=== PATIENT | male | born 1930 | race African-American/Black ===

== ENCOUNTER 2017-01-27 12:55 | Inpatient (IN) | payer MEDICARE ==
[~2017-01-27] VITALS: Ht 172.7 cm; Wt 56.2 kg
[2017-01-27] MEDS ORDERED: ACETAMINOPHEN 325MG TABLET PO STA (13:35)
[2017-01-27] MEDS ORDERED: LEVOFLOXACIN 750MG PREMIX 150 ML IV ONE (13:45)
[2017-01-27] MEDS ORDERED: SODIUM CHLORIDE 0.9% 1000ML BAG (SEPSIS BOLUS) IV ONE (13:45)
[2017-01-27 14:24] LABS: HEMATOCRIT. 30.2 % (42.0-52.0); HEMOGLOBIN. 9.9 g/dL (14.0-18.0); MEAN CORPUSCULAR HEMOGLOBIN 30.7 pg (28.0-32.0); MEAN CORPUSCULAR HGB CONC 32.8 g/dL (31.0-37.0); MEAN CORPUSCULAR VOLUME 93.6 fL (80.0-94.0); MEAN PLATELET VOLUME 8.2 fl (7.4-10.4); PLATELET 227 x1000/uL (130-400); RED BLOOD CELL COUNT 3.23 mill/uL (4.7-6.1); WHITE BLOOD COUNT 14.7 x1000/uL (4.5-11.0)
[2017-01-27 14:27] LABS: DIFFERENTIAL COMMENT 1
[2017-01-27 14:31] LABS: CHLORIDE 103 mEq/L (98-107); INDEX HEMOLYSI 1 (1-3); INDEX ICTERIC 1 (1-4); INDEX LIPEMIC 1 (1-3); INR 1.3
[2017-01-27 14:41] LABS: ALANINE AMINOTRANSFERASE 25 IU/L (13-61); ALBUMIN 2.8 g/dL (3.4-5.0); ANION GAP 17; CALCIUM 8.5 mg/dL (8.5-10.1); CARBON DIOXIDE 24 mEq/L (21-32); TROPONIN I 0.04 ng/mL (0.00-0.04); UREA NITROGEN BLOOD 39 mg/dL (7-21); eGFR 47 mL/min (>60)
[2017-01-27 14:44] LABS: PLATELET ESTIMATE NORMAL
[2017-01-27] MEDS ORDERED: TERA10CA43 PO (15:39)
[2017-01-27] MEDS ORDERED: FLUD0.1T PO (15:39)
[2017-01-27] MEDS ORDERED: ALLO100T PO (15:39)
[2017-01-27] MEDS ORDERED: METO50TA5 PO (15:39)
[2017-01-27] MEDS ORDERED: SODI15OR4 PO (15:39)
[2017-01-27] MEDS ORDERED: CHOL500010 PO (15:39)
[2017-01-27] MEDS ORDERED: AMLO10TA80 PO (15:39)
[2017-01-27] MEDS ORDERED: SIMV10TA6 PO (15:39)
[2017-01-27] MEDS ORDERED: ONDANSETRON HCL 4MG/2ML VIAL IV PRN (17:15)
[2017-01-27] MEDS ORDERED: MAGNESIUM/ALUMINUM HYDROXIDE/SIMETHICONE 30ML UDC PO PRN (17:15)
[2017-01-27] MEDS ORDERED: DOCUSATE SODIUM 100MG CAPSULE PO PRN (17:15)
[2017-01-27] MEDS ORDERED: GUAIFENESIN 200MG/10ML SUGAR FREE UDC PO PRN (17:15)
[2017-01-27] MEDS ORDERED: DIPHENHYDRAMINE 50MG/ML VIAL IV PRN (17:15)
[2017-01-27] MEDS ORDERED: IPRATROPIUM/ALBUTEROL 0.5-3(2.5)MG/3ML NEB INH PRN (17:15)
[2017-01-27] MEDS ORDERED: NITROGLYCERIN 0.4MG TABLET SL SL PRN (17:15)
[2017-01-27] MEDS ORDERED: CLONIDINE 0.1MG TABLET PO PRN (17:15)
[2017-01-27] MEDS ORDERED: LORAZEPAM 2MG/ML CPJ IV PRN (17:15)
[2017-01-27 17:49] LABS: ETHANOL BLOOD < 10 mg/dL; INDEX HEMOLYSI 1 (1-3); INDEX ICTERIC 1 (1-4); INDEX LIPEMIC 1 (1-3); IRON 14 ug/dL (50-175); TOTAL IRON BINDING CAPACITY 154 ug/dL (250-450)
[2017-01-27 17:54] LABS: T4 FREE 1.83 ng/dL (0.76-1.46)
[2017-01-27 18:10] LABS: FOLIC ACID (FOLATE) SERUM 16.1 ng/mL (>5.38)
[2017-01-27] MEDS ORDERED: TRAMADOL 50MG TABLET PO PRN (18:34)
[2017-01-27] MEDS ORDERED: NA PHOS,M-B/NA PHOS,DI-BA ENEMA 118ML PR PRN (18:35)
[2017-01-27] MEDS ORDERED: ZOLPIDEM TARTRATE 5MG TABLET PO PRN (20:00)
[2017-01-27 20:40] VITALS: BP 126/81
[2017-01-27] MEDS ORDERED: CEFTRIAXONE 1 G PREMIX 50 ML IV SCH (22:00)
[2017-01-27 22:09] LABS: CREATINE KINASE MB FRACTION 1.9 ng/mL (0.5-3.6); TROPONIN I 0.04 ng/mL (0.00-0.04)
[2017-01-27] MEDS: METOPROLOL TARTRATE 25MG TABLET PO SCH (22:22)
[2017-01-27] MEDS: TAMSULOSIN HCL 0.4MG SR CAPSULE PO SCH (22:22)
[2017-01-27] MEDS: ENOXAPARIN 30MG/0.3ML SYR SUBCUT SCH (22:22)
[2017-01-27] MEDS: DUTASTERIDE 0.5MG CAPSULE PO SCH (22:22)
[2017-01-28] VITALS: BP 112/66
[2017-01-28] MEDS: ACETAMINOPHEN 325MG TABLET PO PRN (00:17)
[2017-01-28 04:00] VITALS: BP 125/74
[2017-01-28 07:36] LABS: CREATINE KINASE MB FRACTION 3.2 ng/mL (0.5-3.6)
[2017-01-28 07:38] LABS: TROPONIN I 0.04 ng/mL (0.00-0.04)
[2017-01-28 07:45] VITALS: BP 132/78
[2017-01-28] MEDS: ZINC SULFATE 220 MG ( 50 ) CAPSULE PO SCH (08:44)
[2017-01-28] MEDS: CYANOCOBALAMIN 1000MCG/ML VIAL IM SCH (08:44)
[2017-01-28] MEDS: PANTOPRAZOLE SODIUM 40 MG/VIAL IV SCH (08:44)
[2017-01-28] MEDS: METOPROLOL TARTRATE 25MG TABLET PO SCH ×2 (08:45→21:26)
[2017-01-28] MEDS: DUTASTERIDE 0.5MG CAPSULE PO SCH (08:45)
[2017-01-28 11:16] LABS: HEMATOCRIT. 30.5 % (42.0-52.0); HEMOGLOBIN. 9.9 g/dL (14.0-18.0); MEAN CORPUSCULAR HEMOGLOBIN 30.2 pg (28.0-32.0); MEAN CORPUSCULAR HGB CONC 32.4 g/dL (31.0-37.0); MEAN CORPUSCULAR VOLUME 93.1 fL (80.0-94.0); MEAN PLATELET VOLUME 8.4 fl (7.4-10.4); PLATELET 262 x1000/uL (130-400); RED BLOOD CELL COUNT 3.27 mill/uL (4.7-6.1); WHITE BLOOD COUNT 15.8 x1000/uL (4.5-11.0)
[2017-01-28 11:26] LABS: DIFFERENTIAL COMMENT 1
[2017-01-28 11:37] LABS: CHLORIDE 106 mEq/L (98-107); INDEX HEMOLYSI 1 (1-3); INDEX ICTERIC 1 (1-4); INDEX LIPEMIC 1 (1-3)
[2017-01-28 11:45] LABS: ALANINE AMINOTRANSFERASE 22 IU/L (13-61); ALBUMIN 2.5 g/dL (3.4-5.0); ANION GAP 16; CALCIUM 8.4 mg/dL (8.5-10.1); CARBON DIOXIDE 23 mEq/L (21-32); UREA NITROGEN BLOOD 45 mg/dL (7-21); eGFR 54 mL/min (>60)
[2017-01-28 11:49] VITALS: BP 137/79
[2017-01-28 12:35] LABS: PLATELET ESTIMATE NORMAL
[2017-01-28] MEDS: MORPHINE SULFATE 2 MG/ML CPJ (NOT FOR IM USE) IV PRN (12:54)
[2017-01-28 16:00] VITALS: BP 134/80
[2017-01-28 20:00] VITALS: BP 138/78
[2017-01-28] MEDS: CEFTRIAXONE 1 G PREMIX 50 ML IV SCH (21:26)
[2017-01-28] MEDS: TAMSULOSIN HCL 0.4MG SR CAPSULE PO SCH (21:26)
[2017-01-28] MEDS: ENOXAPARIN 30MG/0.3ML SYR SUBCUT SCH (21:27)
[2017-01-29] VITALS: BP 128/72
[2017-01-29 04:00] VITALS: BP 106/67
[2017-01-29 07:01] LABS: *AMPHETAMINES SCREEN URINE NEGATIVE (NEGATIVE); *BARBITURATES SCREEN URINE NEGATIVE (NEGATIVE); *BENZODIAZEPINES SCREEN URINE NEGATIVE (NEGATIVE); *COCAINE SCREEN URINE NEGATIVE (NEGATIVE); CANNABINOID URINE SCREEN NEGATIVE (NEGATIVE); ECSTASY MDMA SCREEN URINE NEGATIVE (NEGATIVE); METHADONE URINE SCREEN NEGATIVE (NEGATIVE); OPIATES URINE SCREEN PRESUMTIVE POSITIVE (NEGATIVE); PHENCYCLIDINE URINE SCREEN NEGATIVE (NEGATIVE)
[2017-01-29 08:00] VITALS: BP 118/69
[2017-01-29] MEDS: METOPROLOL TARTRATE 25MG TABLET PO SCH ×2 (08:40→21:07)
[2017-01-29] MEDS: CYANOCOBALAMIN 1000MCG/ML VIAL IM SCH (08:40)
[2017-01-29] MEDS: PANTOPRAZOLE SODIUM 40 MG/VIAL IV SCH (08:40)
[2017-01-29] MEDS: DUTASTERIDE 0.5MG CAPSULE PO SCH (08:40)
[2017-01-29] MEDS: ZINC SULFATE 220 MG ( 50 ) CAPSULE PO SCH (08:40)
[2017-01-29 12:00] VITALS: BP 105/64
[2017-01-29 16:00] VITALS: BP 114/73
[2017-01-29] MEDS: LEVOFLOXACIN 750MG PREMIX 150 ML IV SCH (17:18)
[2017-01-29 20:00] VITALS: BP 109/65
[2017-01-29] MEDS: CEFTRIAXONE 1 G PREMIX 50 ML IV SCH (21:06)
[2017-01-29] MEDS: ENOXAPARIN 30MG/0.3ML SYR SUBCUT SCH (21:06)
[2017-01-29] MEDS: TAMSULOSIN HCL 0.4MG SR CAPSULE PO SCH (21:07)
[2017-01-30] VITALS: BP 122/74
[2017-01-30] MEDS: ACETAMINOPHEN 325MG TABLET PO PRN (00:34)
[2017-01-30 04:00] VITALS: BP 111/64
[2017-01-30 07:39] VITALS: BP 111/63
[2017-01-30] MEDS: ZINC SULFATE 220 MG ( 50 ) CAPSULE PO SCH (08:10)
[2017-01-30] MEDS: CYANOCOBALAMIN 1000MCG/ML VIAL IM SCH (08:10)
[2017-01-30] MEDS: PANTOPRAZOLE SODIUM 40 MG/VIAL IV SCH (08:10)
[2017-01-30] MEDS: METOPROLOL TARTRATE 25MG TABLET PO SCH ×2 (08:11→21:22)
[2017-01-30] MEDS: MORPHINE SULFATE 2 MG/ML CPJ (NOT FOR IM USE) IV PRN (08:11)
[2017-01-30] MEDS: DUTASTERIDE 0.5MG CAPSULE PO SCH (08:17)
[2017-01-30 11:45] VITALS: BP 115/75
[2017-01-30 15:37] VITALS: BP 125/78
[2017-01-30 20:00] VITALS: BP_SYST 125; BP_SYST 129; BP_SYST 141; BP_DIAS 66; BP_DIAS 82; BP_DIAS 84
[2017-01-30] MEDS: CEFTRIAXONE 1 G PREMIX 50 ML IV SCH (21:17)
[2017-01-30] MEDS: ENOXAPARIN 30MG/0.3ML SYR SUBCUT SCH (21:21)
[2017-01-30] MEDS: TAMSULOSIN HCL 0.4MG SR CAPSULE PO SCH (21:22)
[2017-01-31] VITALS (7 sets, daily range): BP systolic 102–129; BP diastolic 62–93
[2017-01-31] MEDS: FAMOTIDINE 20MG TABLET PO SCH (08:48)
[2017-01-31] MEDS: DUTASTERIDE 0.5MG CAPSULE PO SCH (08:48)
[2017-01-31] MEDS: CYANOCOBALAMIN 1000MCG/ML VIAL IM SCH (08:48)
[2017-01-31] MEDS: METOPROLOL TARTRATE 25MG TABLET PO SCH ×2 (08:51→20:53)
[2017-01-31] MEDS: ZINC SULFATE 220 MG ( 50 ) CAPSULE PO SCH (09:29)
[2017-01-31] MEDS: ACETAMINOPHEN 325MG TABLET PO PRN (09:30)
[2017-01-31 16:08] LABS: HEMATOCRIT. 27.1 % (42.0-52.0); MEAN CORPUSCULAR HEMOGLOBIN 30.8 pg (28.0-32.0); MEAN CORPUSCULAR HGB CONC 33.2 g/dL (31.0-37.0); MEAN CORPUSCULAR VOLUME 92.8 fL (80.0-94.0); MEAN PLATELET VOLUME 8.2 fl (7.4-10.4); PLATELET 324 x1000/uL (130-400); RED BLOOD CELL COUNT 2.92 mill/uL (4.7-6.1); RED CELL DISTRIBUTION WIDTH 14.3 % (11.6-14.6); WHITE BLOOD COUNT 13.9 x1000/uL (4.5-11.0)
[2017-01-31 16:13] LABS: DIFFERENTIAL COMMENT 1
[2017-01-31 16:26] LABS: ALANINE AMINOTRANSFERASE 35 IU/L (13-61); ALBUMIN 2.2 g/dL (3.4-5.0); ANION GAP 10; CALCIUM 8.8 mg/dL (8.5-10.1); CARBON DIOXIDE 26 mEq/L (21-32); CHLORIDE 107 mEq/L (98-107); INDEX HEMOLYSI 1 (1-3); INDEX ICTERIC 1 (1-4); INDEX LIPEMIC 1 (1-3); UREA NITROGEN BLOOD 42 mg/dL (7-21); eGFR 59 mL/min (>60)
[2017-01-31 17:11] LABS: PLATELET ESTIMATE NORMAL
[2017-01-31] MEDS: LEVOFLOXACIN 750MG PREMIX 150 ML IV SCH (17:32)
[2017-01-31] MEDS: TAMSULOSIN HCL 0.4MG SR CAPSULE PO SCH (20:52)
[2017-01-31] MEDS: ENOXAPARIN 30MG/0.3ML SYR SUBCUT SCH (20:53)
[2017-01-31] MEDS: CEFTRIAXONE 1 G PREMIX 50 ML IV SCH (21:10)
[2017-02-01] VITALS (7 sets, daily range): BP systolic 113–138; BP diastolic 72–85
[2017-02-01] MEDS: DUTASTERIDE 0.5MG CAPSULE PO SCH (08:50)
[2017-02-01] MEDS: FAMOTIDINE 20MG TABLET PO SCH (08:50)
[2017-02-01] MEDS: CYANOCOBALAMIN 1000MCG/ML VIAL IM SCH (08:50)
[2017-02-01] MEDS: ZINC SULFATE 220 MG ( 50 ) CAPSULE PO SCH (08:50)
[2017-02-01] MEDS: METOPROLOL TARTRATE 25MG TABLET PO SCH (08:51)
== END 2017-02-01 20:10 | DRG 872 ==
LOC: ER 13:07 → 8WST 17:05 → SUPCPDRO 17:05 → 8WST 01-28 22:18
PROVIDERS: ADMIT Internal Medicine; ATTEND Internal Medicine
DX: A41.9 Sepsis, unspecified organism (principal); E44.0 Moderate protein-calorie malnutrition; N13.8 Other obstructive and reflux uropathy; N17.9 Acute kidney failure, unspecified; Z68.1 Body mass index [BMI] 19.9 or less, adult; N40.1 Benign prostatic hyperplasia with lower urinary tract symptoms; F03.90 Unspecified dementia, unspecified severity, without behavioral disturbance, psychotic disturbance, mood disturbance, and anxiety; M25.569 Pain in unspecified knee; I10 Essential (primary) hypertension; Z75.1 Person awaiting admission to adequate facility elsewhere; Z79.899 Other long term (current) drug therapy; Z72.89 Other problems related to lifestyle; D63.8 Anemia in other chronic diseases classified elsewhere
CPT/HCPCS: 36415; 71010; 72148; 74176; 80053; 80305; 82550; 82553; 82607; 82746; 83540; 83550; 83605; 84439; 84443; 84484; 85025; 85610; 87040; 93005; 93306; 93970; 96361; 96365; 96366; 97162; 97166; 97530; 99291; C9113; G0482; J0696; J1650; J1956; J2270; J3420; J7030; J7040